=== PATIENT | female | born 1950 | race Caucasian/White ===

== ENCOUNTER 2019-08-12 09:09 | Outpatient (CLI) | payer MEDICARE ==
--- NOTE | 2019-08-12 10:39 | BD ---
DEXA BONE DENSITY STUDY: HISTORY: Postmenopausal. LUMBAR SPINE BMD (g/cm2) T-SCORE L1 1.040 +0.5 L2 1.188 +1.5 L3 1.157 +0.7 L4 1.144 +0.8 TOTAL 1.138 +0.8 LEFT FEMORAL NECK 1.098 +2.1 TOTAL 1.248 +2.5 RIGHT FEMORAL NECK 1.024 +1.6 TOTAL 1.227 +2.3 IMPRESSION: Normal bone mineral density of the lumbar spine and both femoral necks. Z-score values are moderately elevated in this patient. Sometimes this can be an indication of some underlying bone disease such a s renal disease. Clinical correlation is recommended. POS: [facility]
== END 2019-08-12 09:10 | disposition home or self-care (01) ==
LOC: BICMAMMO 09:09
PROVIDERS: ATTEND Internal Medicine Rheumatology
DX: M81.0 Age-related osteoporosis without current pathological fracture (principal)
CPT/HCPCS: 77080

== ENCOUNTER 2019-08-14 12:43 | Outpatient (CLI) | payer MEDICARE ==
--- NOTE | 2019-08-14 13:10 | RAD ---
EXAM: Chest 2 views: HISTORY: Unspecified IRIDOCYCLITIS COMPARISON: None. FINDINGS: There is a normal-sized cardiomediastinal silhouette. There is no evidence of consolidation, mass, or pleural effusion. The bones are unremarkable. IMPRESSION: No evidence of acute cardiopulmonary disease
== END 2019-08-14 12:44 | disposition home or self-care (01) ==
LOC: BICRAD 12:43
PROVIDERS: ATTEND Internal Medicine Rheumatology
DX: H20.9 Unspecified iridocyclitis (principal)
CPT/HCPCS: 71046

== ENCOUNTER 2021-10-09 07:56 | Outpatient (CLI) | payer MEDICARE | END 2021-10-09 07:57 | disposition home or self-care (01) | LOC: BICMAMMO 07:56 | PROVIDERS: ATTEND Internal Medicine Rheumatology | DX: M81.0 Age-related osteoporosis without current pathological fracture (principal) | CPT/HCPCS: 77080 ==

== ENCOUNTER 2022-11-29 14:28 | Outpatient (CLI) | payer MEDICARE ==
[2022-11-29 15:33] LABS: Anion Gap 15 mmol/L (10-20); BUN (Urea Nitrogen) 27 mg/dL (9.8-20.1); Calc. Creatinine Clearance 0 mL/min (70-130); Calcium 9.2 mg/dL (7.8-10.44); Carbon Dioxide 27 mmol/L (23-31); Chloride 105 mmol/L (98-107); Estimated GFR 59; Glucose 164 mg/dL (80-115); Potassium 3.1 mmol/L (3.5-5.1); Sodium 144 mmol/L (136-145)
[2022-11-29 15:51] LABS: #Basophils 0.1 10x3/uL (0.0-0.2); #Eosinphils 0.1 10x3/uL (0.0-0.5); #Monocytes 0.7 10x3/uL (0.0-1.1); #Neutrophils 5.5 10x3/uL (1.5-8.4); %Basophils 0.4 % (0.0-2.0); %Eosinophils 0.9 % (0.0-6.0); %Lymphocytes 43.4 % (18.0-47.0); %Neutrophils 48.9 % (40.0-75.0); Mean Corpuscular HGB CONC 32.7 g/dL (32.0-36.0); Mean Corpuscular Volume 91.7 fl (81.6-98.3); Mean Platelet Volume 8.7 fl (7.4-10.4); Platelet Count 293 10x3/uL (150-450); RBC Distribution Width 14.1 % (11.5-14.5); Red Blood Cell (RBC) Count 4.33 10x6/uL (3.90-5.03); White Blood Cell (WBC) Count 11.3 10x3/uL (3.5-10.5)
== END 2022-11-29 14:29 | disposition home or self-care (01) ==
LOC: LABBT 14:28
PROVIDERS: ATTEND Orthopaedic Surgery
DX: Z01.812 Encounter for preprocedural laboratory examination (principal); M16.0 Bilateral primary osteoarthritis of hip
CPT/HCPCS: 80048; 85025; 85610; 87081; 93005; 93010

== ENCOUNTER 2022-12-04 08:20 | Observation (INO) | payer MEDICARE ==
[2022-11-30 13:36] VITALS: BMI 38.7
[2022-12-04] MEDS ORDERED: Ropivacaine 0.5% HCl/PF (150 MG/30 ML VIAL) ONE (08:58)
[2022-12-04] MEDS ORDERED: Fentanyl 100 MCG/2 ML VIAL ONE ×2 (08:58→12:20)
[2022-12-04] MEDS ORDERED: Midazolam HCl 2 mg/2 ml Vial ONE (08:58)
[2022-12-04] MEDS ORDERED: Tranexamic Acid 1,000 MG/10 ML VIAL ONE (08:59)
[2022-12-04] MEDS ORDERED: Vancomycin (BATCH) 1.5 GRAM/300 ML BAG ONE (08:59)
[2022-12-04] MEDS ORDERED: Sodium Chloride 0.9% 100 ML ONE ×2 (08:59→09:40)
[2022-12-04] MEDS ORDERED: Bupivacaine PF 0.5% 30 ML VIAL ONE (09:20)
[2022-12-04] MEDS ORDERED: fentaNYL PF 100 MCG/2 ML SYRINGE ONE (09:23)
[2022-12-04] MEDS ORDERED: Propofol 500 MG/50 ML VIAL ONE ×2 (09:24→10:43)
[2022-12-04] MEDS ORDERED: Lidocaine 1% PF 5 ML VIAL ONE ×2 (09:24→09:56)
[2022-12-04] MEDS ORDERED: HYDROcodone/Acetaminophen 10/325 mg Tablet PO PRN (09:33)
[2022-12-04] MEDS ORDERED: Zolpidem Tartrate 5 MG TAB PO PRN (09:33)
[2022-12-04] MEDS ORDERED: Promethazine HCl 25 MG/ML VIAL IM PRN (09:33)
[2022-12-04] MEDS ORDERED: Acetaminophen 325 MG TAB PO PRN (09:33)
[2022-12-04] MEDS ORDERED: Ondansetron PF 4 MG/2 ML Vial IVP PRN (09:33)
[2022-12-04] MEDS ORDERED: diphenhydrAMINE 25 MG CAP PO PRN (09:33)
[2022-12-04] MEDS ORDERED: guaiFENesin ER 600 MG TAB PO PRN (09:35)
[2022-12-04] MEDS ORDERED: CEFAZOLIN 2 GM VIAL ONE (09:40)
[2022-12-04 09:52] LABS: SARS-CoV-2 NAA Rapid Test Not Detected (NotDetected)
[2022-12-04] MEDS ORDERED: PROPOFOL 200 MG/20 ML VIAL ONE (09:56)
[2022-12-04] MEDS ORDERED: PHENYLEPHRINE-NS 100 MCG/ML 10 ML SYRINGE ONE (09:56)
[2022-12-04] MEDS ORDERED: HYDROcodone/Acetaminophen 10/325 mg Tablet ONE (14:53)
[2022-12-04] MEDS: HYDROcodone/Acetaminophen 10/325 mg Tablet PO PRN (18:35)
[2022-12-04] MEDS: CEFAZOLIN 2 GM in Sodium Chloride 0.9% 100 ML IVPB SCH (18:36)
[2022-12-04] MEDS: Sodium Chloride 0.9% 1,000 ML IV SCH (18:40)
[2022-12-04] MEDS ORDERED: DULoxetine 60 MG CAP PO SCH (21:00)
[2022-12-04] MEDS ORDERED: tiZANidine HCl 4 MG TAB PO SCH (21:00)
[2022-12-04] MEDS ORDERED: Ezetimibe 10 MG TAB PO SCH (21:00)
[2022-12-04] MEDS ORDERED: [UNRECOGNIZED DRUG - MIXTURE] PO SCH (21:00)
[2022-12-04] MEDS: Aspirin 81 mg Enteric Coated Tablet PO SCH (21:01)
[2022-12-04] MEDS: Ferrous Gluconate 324 MG TAB PO SCH (21:02)
[2022-12-04] MEDS: Senokot S 8.6-50 MG TAB PO SCH (21:02)
[2022-12-04] MEDS: Oxybutynin 5 MG TAB PO SCH (21:03)
[2022-12-05] MEDS: Sodium Chloride 0.9% 1,000 ML IV SCH ×2 (00:29→04:20)
[2022-12-05] MEDS: CEFAZOLIN 2 GM in Sodium Chloride 0.9% 100 ML IVPB SCH (02:22)
[2022-12-05] MEDS: HYDROcodone/Acetaminophen 10/325 mg Tablet PO PRN ×2 (04:21→08:32)
[2022-12-05 06:11] LABS: Hemoglobin 11.3 g/dL (12.0-16.0); Mean Corpuscular HGB CONC 33.2 g/dL (32.0-36.0); Mean Corpuscular Hemoglobin 31.6 pg (27.0-31.0); Mean Platelet Volume 6.8 fL (7.4-10.4); Platelet Count 258 10x3/uL (130-400); RBC Distribution Width 13.1 % (11.5-14.5); White Blood Cell (WBC) Count 15.9 10x3/uL (4.8-10.8)
[2022-12-05 07:48] VITALS: TEMP 97.9
[2022-12-05] MEDS: Ferrous Gluconate 324 MG TAB PO SCH (08:31)
[2022-12-05] MEDS: Senokot S 8.6-50 MG TAB PO SCH (08:31)
[2022-12-05] MEDS: Aspirin 81 mg Enteric Coated Tablet PO SCH (08:31)
[2022-12-05] MEDS: Oxybutynin 5 MG TAB PO SCH (08:32)
[2022-12-05] MEDS ORDERED: Lisinopril 10 MG TAB PO SCH (09:00)
[2022-12-05] MEDS ORDERED: Cyanocobalamin (Vitamin B-12) 1,000 MCG TAB PO SCH (09:00)
[2022-12-05] MEDS ORDERED: Magnesium Oxide 250 MG TAB PO SCH (09:00)
[2022-12-05] MEDS ORDERED: VITAMIN E 180 MG PO SCH (09:00)
[2022-12-05] MEDS ORDERED: FLU VACC QS2022-23(65YR UP)/PF 240 MCG/0.7 ML SYRINGE IM ONE (09:00)
[2022-12-05] MEDS ORDERED: Multivit, Therapeutic 1 TAB PO SCH (09:00)
[2022-12-05] MEDS ORDERED: Hydrochlorothiazide 25 MG TAB PO SCH (09:00)
[2022-12-05] MEDS ORDERED: Multivitamin W/ Minerals 1 TAB PO SCH (09:00)
[2022-12-05 11:43] VITALS: BP 109/70
== END 2022-12-05 10:53 | disposition home or self-care (01) ==
LOC: SDC 08:20 → SURG A 15:00
PROVIDERS: ADMIT Orthopaedic Surgery; ATTEND Orthopaedic Surgery
PROC: 0SR902A Replacement of Right Hip Joint with Metal on Polyethylene Synthetic Substitute, Uncemented, Open Approach (ICD-10-PCS; principal; 2022-12-04)
DX: M16.0 Bilateral primary osteoarthritis of hip (principal); I10 Essential (primary) hypertension; E78.00 Pure hypercholesterolemia, unspecified; M79.7 Fibromyalgia; Z79.899 Other long term (current) drug therapy; Z88.2 Allergy status to sulfonamides; Z98.1 Arthrodesis status; Z20.822 Contact with and (suspected) exposure to COVID-19
CPT/HCPCS: 27130; 73502; 85027; 97116; 97530 ×3; 97535; C1776; J3370; U0002; 36415; 96374; 96376; G0378; J2250; J2704; J2795; J3010; J3490; S0020

== ENCOUNTER 2023-01-16 12:43 | Outpatient (CLI) | payer MEDICARE | END 2023-01-16 12:44 | disposition home or self-care (01) | LOC: CT 12:43 | PROVIDERS: ATTEND Neurological Surgery | DX: M47.12 Other spondylosis with myelopathy, cervical region (principal); M48.02 Spinal stenosis, cervical region; Z98.1 Arthrodesis status | CPT/HCPCS: 72125 ==

== ENCOUNTER 2023-01-21 09:44 | Outpatient (CLI) | payer MEDICARE ==
[2023-01-21 12:28] LABS: Hemoglobin 12.5 g/dL (12.0-15.5); Mean Corpuscular HGB CONC 32.8 g/dL (32.0-36.0); Mean Corpuscular Volume 91.6 fl (81.6-98.3); Mean Platelet Volume 9.3 fl (7.4-10.4); Platelet Count 342 10x3/uL (150-450); RBC Distribution Width 13.1 % (11.5-14.5); Red Blood Cell (RBC) Count 4.16 10x6/uL (3.90-5.03); White Blood Cell (WBC) Count 8.9 10x3/uL (3.5-10.5)
[2023-01-21 12:38] LABS: INR-International Normal Ratio 1.1; PTT 29.3 sec (22.0-33.0); Prothrombin Time 11.4 sec (9.5-12.1)
[2023-01-21 12:55] LABS: Anion Gap 17 mmol/L (10-20); BUN (Urea Nitrogen) 15 mg/dL (9.8-20.1); Calc. Creatinine Clearance 0 mL/min (70-130); Calcium 9.4 mg/dL (7.8-10.44); Carbon Dioxide 25 mmol/L (23-31); Chloride 102 mmol/L (98-107); Estimated GFR 71; Glucose 132 mg/dL (80-115); Potassium 3.7 mmol/L (3.5-5.1); Sodium 140 mmol/L (136-145)
== END 2023-01-21 09:45 | disposition home or self-care (01) ==
LOC: LABBT 09:44
PROVIDERS: ATTEND Neurological Surgery
DX: Z01.812 Encounter for preprocedural laboratory examination (principal); M48.03 Spinal stenosis, cervicothoracic region
CPT/HCPCS: 80048; 85027; 85610; 85730

== ENCOUNTER 2023-01-21 09:45 | Inpatient (IN) | payer OTHER, MEDICARE ==
[2023-01-22] MEDS ORDERED: Vancomycin 1 GM VIAL ONE (06:10)
[2023-01-22] MEDS ORDERED: Bupivacaine HCl 0.5%/Epinephrine 1:200,000/PF 30 ml Vial ONE (06:10)
[2023-01-22] MEDS ORDERED: Thrombin 5000 UNITS/5 ML VIAL ONE (06:10)
[2023-01-22] MEDS ORDERED: Bacitracin Zinc Ointment 30 gm TUBE ONE (06:10)
[2023-01-22] MEDS ORDERED: Neomycin-Polymyxin 1 ML AMP ONE (06:10)
[2023-01-22] MEDS ORDERED: Albumin 25% 100 ML ONE (06:12)
[2023-01-22] MEDS ORDERED: Fentanyl 250 MCG/5 ML VIAL ONE (06:12)
[2023-01-22] MEDS ORDERED: Dexmedetomidine 200 MCG/2 ML VIAL ONE (06:12)
[2023-01-22] MEDS ORDERED: CEFAZOLIN 2 GM VIAL ONE (06:18)
[2023-01-22] MEDS ORDERED: Sodium Chloride 0.9% 100 ML ONE (06:18)
[2023-01-22] MEDS ORDERED: Milk Of Magnesia 30 ML UDCUP PO PRN (06:50)
[2023-01-22] MEDS ORDERED: Prochlorperazine 10 MG/2 ML VIAL IM PRN (06:50)
[2023-01-22] MEDS ORDERED: HYDROcodone/Acetaminophen 7.5/325 mg Tablet PO PRN (06:50)
[2023-01-22] MEDS ORDERED: Midazolam HCl 2 mg/2 ml Vial ONE (06:50)
[2023-01-22] MEDS ORDERED: Mag-Al 1200 mg/1200 mg/30 ML UDCUP PO PRN (06:50)
[2023-01-22] MEDS ORDERED: diphenhydrAMINE 50 MG/ML VIAL IVP PRN (06:50)
[2023-01-22] MEDS ORDERED: Acetaminophen/Codeine 30-300mg Tablet PO PRN (06:50)
[2023-01-22] MEDS ORDERED: MINERAL OIL/WHITE PETROLATUM 3.5 GM TUBE ONE (06:59)
[2023-01-22] MEDS ORDERED: Ondansetron PF 4 MG/2 ML Vial ONE (07:05)
[2023-01-22] MEDS ORDERED: PROPOFOL 200 MG/20 ML VIAL ONE (07:05)
[2023-01-22] MEDS ORDERED: Dexamethasone 20 MG/5 ML VIAL ONE (07:05)
[2023-01-22] MEDS ORDERED: Lidocaine 1% PF 5 ML VIAL ONE (07:05)
[2023-01-22] MEDS ORDERED: Rocuronium Bromide 10 MG/ML (10ML VIAL) ONE (07:05)
[2023-01-22] MEDS ORDERED: NEOSTIGMINE 3 MG/3 ML SYR 3 MG/3 ML SYRINGE ONE (07:05)
[2023-01-22] MEDS ORDERED: Vecuronium 10 MG VIAL ONE (07:05)
[2023-01-22] MEDS ORDERED: Phenylephrine 10 MG/ML VIAL ONE (07:05)
[2023-01-22] MEDS ORDERED: Esmolol 100 MG/10 ML VIAL ONE (07:05)
[2023-01-22] MEDS ORDERED: GLYCOPYRROLATE/PF 0.2 MG/ML VIAL ONE (07:05)
[2023-01-22] MEDS ORDERED: Famotidine/PF 20 mg/2ml Vial ONE (12:28)
[2023-01-22] MEDS ORDERED: HYDROmorphone 2 MG/ML VIAL ONE (12:41)
[2023-01-22] MEDS ORDERED: Promethazine HCl 25 MG/ML VIAL IM PRN (12:54)
[2023-01-22] MEDS ORDERED: Morphine Sulfate 2 MG/ML SYRINGE SLOW IVP PRN (12:54)
[2023-01-22] MEDS ORDERED: HYDROmorphone 2 MG/ML VIAL SLOW IVP PRN (12:54)
[2023-01-22] MEDS ORDERED: Ondansetron HCl/PF 4 MG/2 ML Vial IVP PRN (12:54)
[2023-01-22] MEDS: Sodium Chloride 0.9% 1,000 ML IV SCH ×3 (15:20→20:20)
[2023-01-22] MEDS: Oxybutynin 5 MG TAB PO SCH ×2 (15:30→19:49)
[2023-01-22 16:58] VITALS: BMI 39.0
[2023-01-22] MEDS: Ondansetron PF 4 MG/2 ML Vial IVP PRN (17:45)
[2023-01-22] MEDS: Morphine 2 MG/ML VIAL SLOW IVP PRN ×2 (17:45→21:58)
[2023-01-22] MEDS: CEFAZOLIN 2 GM in Sodium Chloride 0.9% 100 ML IVPB SCH ×2 (17:46→22:02)
[2023-01-22] MEDS: tiZANidine HCl 4 MG TAB PO PRN (19:48)
[2023-01-22] MEDS: HYDROcodone/Acetaminophen 10/325 mg Tablet PO PRN (19:48)
[2023-01-22] MEDS: DULoxetine 60 MG CAP PO SCH (19:49)
[2023-01-22] MEDS: Ezetimibe 10 MG TAB PO SCH (19:50)
[2023-01-22] MEDS ORDERED: Fentanyl 100 MCG/2 ML VIAL SLOW IVP PRN (22:17)
[2023-01-22] MEDS ORDERED: Dexamethasone 4 mg/ml Vial SLOW IVP SCH (22:30)
[2023-01-22] MEDS ORDERED: Diazepam 5 MG TAB PO SCH (22:30)
[2023-01-22] MEDS: fentaNYL 50 mcg/mL 1 mL Vial SLOW IVP PRN ×2 (22:32→23:59)
[2023-01-23] MEDS: HYDROcodone/Acetaminophen 10/325 mg Tablet PO PRN (00:31)
[2023-01-23] MEDS: HYDROmorphone/PF 10 MG in Sodium Chloride 0.9% 99 ML IVPB PRN ×2 (01:54→16:22)
[2023-01-23] MEDS ORDERED: diphenhydrAMINE 50 MG/ML VIAL IM/IV PRN (02:30)
[2023-01-23] MEDS ORDERED: Ketorolac Tromethamine 30 MG/ML VIAL IVP PRN (02:30)
[2023-01-23] MEDS ORDERED: Naloxone HCl 0.4 mg/ml Vial IV PRN (02:30)
[2023-01-23] MEDS ORDERED: Zolpidem Tartrate 5 MG TAB PO PRN (02:30)
[2023-01-23] MEDS ORDERED: Promethazine HCl 25 MG/ML VIAL IM PRN (02:30)
[2023-01-23] MEDS: Sodium Chloride 0.9% 1,000 ML IV SCH ×2 (07:52→20:28)
[2023-01-23] MEDS: Oxybutynin 5 MG TAB PO SCH ×2 (07:54→20:28)
[2023-01-23] MEDS ORDERED: Acetaminophen 500 MG TAB PO SCH (10:00)
[2023-01-23] MEDS ORDERED: Ketorolac Tromethamine 30 MG/ML VIAL IVP SCH (10:00)
[2023-01-23] MEDS: Acetaminophen 500 MG TAB PO SCH ×2 (12:22→17:34)
[2023-01-23] MEDS: Ketorolac Tromethamine 30 MG/ML VIAL IVP SCH ×2 (12:22→17:33)
[2023-01-23] MEDS: diphenhydrAMINE 25 MG CAP PO PRN ×2 (16:30→20:27)
[2023-01-23] MEDS: DULoxetine 60 MG CAP PO SCH (20:27)
[2023-01-23] MEDS: Ezetimibe 10 MG TAB PO SCH (20:27)
[2023-01-24] MEDS: Acetaminophen 500 MG TAB PO SCH ×4 (00:02→19:16)
[2023-01-24] MEDS: Ketorolac Tromethamine 30 MG/ML VIAL IVP SCH ×3 (00:02→13:06)
[2023-01-24] MEDS: diphenhydrAMINE 25 MG CAP PO PRN ×2 (06:06→20:06)
[2023-01-24 07:48] LABS: Hemoglobin 10.8 g/dL (12.0-16.0); Mean Corpuscular HGB CONC 32.2 g/dL (32.0-36.0); Mean Corpuscular Hemoglobin 31.3 pg (27.0-31.0); Mean Corpuscular Volume 97.3 fl (78.0-98.0); Mean Platelet Volume 6.7 fL (7.4-10.4); Platelet Count 379 10x3/uL (130-400); RBC Distribution Width 12.5 % (11.5-14.5); Red Blood Cell (RBC) Count 3.43 mill/uL (4.20-5.40)
[2023-01-24 08:07] LABS: Anion Gap 17 mmol/L (10-20); BUN (Urea Nitrogen) 33 mg/dL (9.8-20.1); Calc. Creatinine Clearance 31 mL/min (70-130); Calcium 8.3 mg/dL (7.8-10.44); Carbon Dioxide 21 mmol/L (23-31); Chloride 101 mmol/L (98-107); Estimated GFR 21; Glucose 166 mg/dL (80-115); Sodium 135 mmol/L (136-145)
[2023-01-24] MEDS: Oxybutynin 5 MG TAB PO SCH (09:58)
[2023-01-24] MEDS: Ondansetron PF 4 MG/2 ML Vial IVP PRN ×2 (10:32→20:01)
[2023-01-24 10:53] LABS: Band 28 % (5-11); Lymphocytes 7 % (21-51); MDiff Complete? YES; Metamyelocyte 1 % (0-0); Monocytes 6 % (0-10); Neutrophil 58 % (42-75); Platelet Morphology Comment Appears Adequate; Polychromasia SLIGHT = 2-3 cells (100X) (0-2/hpf)
[2023-01-24] MEDS: Sodium Chloride 0.9% 1,000 ML IV SCH ×2 (12:43→19:57)
[2023-01-24 13:03] LABS: ALT (SGPT) 27 U/L (8-55); AST (SGOT) 68 U/L (5-34); Albumin 3.1 g/dL (3.4-4.8); Alkaline Phosphatase 85 U/L (40-110); Bilirubin, Direct 0.3 mg/dL (0.1-0.3); Bilirubin, Total 0.5 mg/dL (0.2-1.2); Protein, Total 5.6 g/dL (5.8-8.1)
[2023-01-24 14:11] LABS: Bacteria/HPF 3+ HPF (None Seen); Bilirubin Negative (Negative); Blood, Urine 3+ (Negative); CAUTI Indications for Culture Spinal Cord Injury; Clarity Turbid (Clear); Glucose, Urine (Dipstick) Normal (Negative); Ketone, Urine Trace mg/dL (Negative); Leukocyte 250 Leu/uL (Negative); Nitrite Negative (Negative); Protein, Urine (Dipstick) 30 mg/dL (Neg-Trace); RBC/HPF 0-3 HPF (0-3); Specific Gravity, Urine 1.023 (1.002-1.036); Squamous Epithelial 0-3 HPF (0-3); Urobilinogen Normal mg/dL (Less than 2)
[2023-01-24 14:12] LABS: Urine Culture Reflex No No
[2023-01-24 14:44] LABS: Creatinine, Urine 139.56 mg/dL (47-110); Protein, Urine Random Quant 44 mg/dL (1-14); Sodium, Urine Less than 20 mmol/L (Not Available); Urea Nitrogen, Random Urine 611 mg/dl
[2023-01-24] MEDS ORDERED: Sodium Chloride 0.9% 500 ML IV SCH (15:15)
[2023-01-24] MEDS ORDERED: Vancomycin 1 GM in Premix Bag 1 BAG IVPB SCH (15:30)
[2023-01-24 15:38] LABS: Legionella Urinary Ag Negative (Negative); Strep pneumo Urine Ag NEGATIVE (NEGATIVE)
[2023-01-24] MEDS ORDERED: VANCOMYCIN 1.75 GM/500 ML BAG 1.75 GM in Premix Bag 1 BAG IVPB SCH (16:00)
[2023-01-24] MEDS ORDERED: Meropenem 1 GM in Sodium Chloride 0.9% 100 ML IVPB SCH ×2 (16:00→18:00)
[2023-01-24] MEDS ORDERED: Vancomycin Dose by Levels Sliding Scale (Wt 71-99) FS SCH (16:00)
[2023-01-24 17:45] LABS: INR-International Normal Ratio 1.5; Prothrombin Time 18.5 sec (12.0-14.7)
[2023-01-24 17:59] LABS: Troponin I Less than 0.010 ng/mL (< 0.028)
[2023-01-24] MEDS: Ezetimibe 10 MG TAB PO SCH (20:06)
[2023-01-24] MEDS: DULoxetine 60 MG CAP PO SCH (20:06)
[2023-01-25] MEDS: Acetaminophen 500 MG TAB PO SCH ×4 (00:29→18:23)
[2023-01-25] MEDS: tiZANidine HCl 4 MG TAB PO PRN ×2 (00:32→09:23)
[2023-01-25] MEDS ORDERED: DRY MOUTH SPRAY PO PRN (01:17)
[2023-01-25] MEDS ORDERED: Meropenem 500 MG in Sodium Chloride 0.9% 100 ML IVPB SCH (02:00)
[2023-01-25] MEDS: DRY MOUTH SPRAY PO SCH ×3 (05:24→21:21)
[2023-01-25 05:50] LABS: Hemoglobin 10.8 g/dL (12.0-16.0); Mean Corpuscular HGB CONC 34.2 g/dL (32.0-36.0); Mean Corpuscular Hemoglobin 32.5 pg (27.0-31.0); Mean Corpuscular Volume 95.3 fl (78.0-98.0); Mean Platelet Volume 6.9 fL (7.4-10.4); Platelet Count 324 10x3/uL (130-400); RBC Distribution Width 12.2 % (11.5-14.5); Red Blood Cell (RBC) Count 3.33 mill/uL (4.20-5.40); White Blood Cell (WBC) Count 8.1 10x3/uL (4.8-10.8)
[2023-01-25 06:06] LABS: Troponin I Less than 0.010 ng/mL (< 0.028)
[2023-01-25 06:16] LABS: ALT (SGPT) 33 U/L (8-55); AST (SGOT) 71 U/L (5-34); Albumin 2.8 g/dL (3.4-4.8); Alkaline Phosphatase 74 U/L (40-110); Anion Gap 12 mmol/L (10-20); BUN (Urea Nitrogen) 36 mg/dL (9.8-20.1); Bilirubin, Direct 0.2 mg/dL (0.1-0.3); Bilirubin, Total 0.3 mg/dL (0.2-1.2); Calc. Creatinine Clearance 59 mL/min (70-130); Calcium 8.4 mg/dL (7.8-10.44); Carbon Dioxide 25 mmol/L (23-31); Chloride 103 mmol/L (98-107); Estimated GFR 45; Globulin 2.4 g/dL (2.4-3.5); Glucose 152 mg/dL (80-115); Lipase Less than 4 U/L (8-78); Magnesium 2.4 mg/dL (1.6-2.6); Potassium 3.4 mmol/L (3.5-5.1); Protein, Total 5.2 g/dL (5.8-8.1); Sodium 137 mmol/L (136-145)
[2023-01-25 06:19] LABS: Hemoglobin A1c 5.4 % (4.0-6.0)
[2023-01-25 06:42] LABS: Band 55 % (5-11); Eosinophils 1 % (0-10); Lymphocytes 10 % (21-51); MDiff Complete? YES; Metamyelocyte 5 % (0-0); Monocytes 14 % (0-10); Neutrophil 15 % (42-75)
[2023-01-25] MEDS ORDERED: Potassium Chloride 20 MEQ TAB PO SCH (07:30)
[2023-01-25] MEDS: oxyCODONE 5 MG TAB PO PRN ×2 (07:47→17:08)
[2023-01-25] MEDS ORDERED: Polyethylene Glycol 3350 17 GM Packet PO PRN (08:56)
[2023-01-25] MEDS ORDERED: Vancomycin 1 GM in Premix Bag 1 BAG IVPB SCH (09:00)
[2023-01-25] MEDS: Senokot S 8.6-50 MG TAB PO SCH ×2 (09:22→21:20)
[2023-01-25] MEDS: Sodium Chloride 0.9% 1,000 ML IV SCH (13:01)
[2023-01-25 16:50] LABS: Vancomycin, Random 1.4 ug/mL (See Comment)
[2023-01-25] MEDS: Meropenem 1 GM in Sodium Chloride 0.9% 100 ML IVPB SCH (17:01)
[2023-01-25] MEDS ORDERED: Vancomycin 1.5 GRAM/300 ML BAG 1.5 GM in Premix Bag 1 BAG IVPB SCH (18:00)
[2023-01-25] MEDS ORDERED: traMADol HCl 50 MG TAB PO PRN (19:20)
[2023-01-25] MEDS: DULoxetine 60 MG CAP PO SCH (21:20)
[2023-01-25] MEDS: Ezetimibe 10 MG TAB PO SCH (21:20)
[2023-01-25 22:15] LABS: #Eosinphils 0.5 thou/uL (0.0-0.7); #Lymphocytes 1.3 thou/uL (1.20-3.40); #Monocytes 0.7 thou/uL (0.11-0.59); #Neutrophils 4.3 thou/uL (1.40-6.50); %Basophils 0.4 % (0.0-1.0); %Eosinophils 6.9 % (0.0-10.0); %Lymphocytes 19.5 % (21.0-51.0); %Neutrophils 63.2 % (42.0-75.0); Hemoglobin 9.8 g/dL (12.0-16.0); Mean Corpuscular HGB CONC 33.9 g/dL (32.0-36.0); Mean Corpuscular Hemoglobin 31.8 pg (27.0-31.0); Mean Corpuscular Volume 93.8 fl (78.0-98.0); Mean Platelet Volume 6.4 fL (7.4-10.4); Platelet Count 313 10x3/uL (130-400); RBC Distribution Width 12.3 % (11.5-14.5); Red Blood Cell (RBC) Count 3.07 mill/uL (4.20-5.40); White Blood Cell (WBC) Count 6.9 10x3/uL (4.8-10.8)
[2023-01-25 22:31] LABS: Actual Bicarbonate (HCO3v) 24.3 mEq/L (22-28); Base Excess 1.5 mEq/L (-2.0 to +3.0); Calcium, Ionized (venous) 1.02 mmol/L (1.16-1.32); Chloride (VBG) 106 mmol/L (98-106); Hematocrit-VBG 31 % (36.0-47.0); Hemoglobin (Hb) 10.4 g/dL (11.7-16.1); Potassium (VBG) 3.67 mmol/L (3.70-5.30); Sodium 135.1 mmol/L (133-146); pH (venous) 7.499 (7.32-7.43)
[2023-01-25 22:36] LABS: ALT (SGPT) 30 U/L (8-55); AST (SGOT) 43 U/L (5-34); Albumin 2.6 g/dL (3.4-4.8); Alkaline Phosphatase 69 U/L (40-110); Anion Gap 10 mmol/L (10-20); BUN (Urea Nitrogen) 28 mg/dL (9.8-20.1); Bilirubin, Total 0.3 mg/dL (0.2-1.2); Calc. Creatinine Clearance 89 mL/min (70-130); Calcium 8.1 mg/dL (7.8-10.44); Carbon Dioxide 24 mmol/L (23-31); Chloride 107 mmol/L (98-107); Estimated GFR 75; Globulin 2.2 g/dL (2.4-3.5); Glucose 112 mg/dL (80-115); Potassium 3.7 mmol/L (3.5-5.1); Protein, Total 4.8 g/dL (5.8-8.1); Sodium 137 mmol/L (136-145)
[2023-01-26] MEDS: Acetaminophen 500 MG TAB PO SCH ×4 (00:45→17:41)
[2023-01-26] MEDS: Meropenem 1 GM in Sodium Chloride 0.9% 100 ML IVPB SCH ×3 (02:57→21:50)
[2023-01-26 05:00] LABS: Hemoglobin 9.7 g/dL (12.0-16.0); Mean Corpuscular HGB CONC 33.9 g/dL (32.0-36.0); Mean Corpuscular Hemoglobin 32.2 pg (27.0-31.0); Mean Corpuscular Volume 94.9 fl (78.0-98.0); Mean Platelet Volume 6.9 fL (7.4-10.4); Platelet Count 311 10x3/uL (130-400); RBC Distribution Width 12.2 % (11.5-14.5); Red Blood Cell (RBC) Count 3.01 mill/uL (4.20-5.40); White Blood Cell (WBC) Count 6.3 10x3/uL (4.8-10.8)
[2023-01-26 05:15] LABS: ALT (SGPT) 29 U/L (8-55); AST (SGOT) 38 U/L (5-34); Albumin 2.6 g/dL (3.4-4.8); Alkaline Phosphatase 73 U/L (40-110); Anion Gap 10 mmol/L (10-20); BUN (Urea Nitrogen) 26 mg/dL (9.8-20.1); Bilirubin, Total 0.3 mg/dL (0.2-1.2); Calc. Creatinine Clearance 96 mL/min (70-130); Calcium 8.2 mg/dL (7.8-10.44); Carbon Dioxide 25 mmol/L (23-31); Chloride 106 mmol/L (98-107); Estimated GFR 82; Globulin 2.3 g/dL (2.4-3.5); Glucose 113 mg/dL (80-115); Magnesium 2.3 mg/dL (1.6-2.6); Potassium 3.6 mmol/L (3.5-5.1); Protein, Total 4.9 g/dL (5.8-8.1); Sodium 137 mmol/L (136-145)
[2023-01-26 05:44] LABS: Band 8 % (5-11); Eosinophils 6 % (0-10); Lymphocytes 18 % (21-51); MDiff Complete? YES; Monocytes 23 % (0-10); Myelocyte 1 % (0-0); Neutrophil 44 % (42-75); Platelet Morphology Comment Appears Adequate; Polychromasia SLIGHT = 2-3 cells (100X) (0-2/hpf)
[2023-01-26] MEDS: DRY MOUTH SPRAY PO SCH ×3 (05:44→20:11)
[2023-01-26] MEDS: Senokot S 8.6-50 MG TAB PO SCH ×2 (07:49→20:06)
[2023-01-26] MEDS: Sodium Chloride 0.9% 1,000 ML IV SCH (08:20)
[2023-01-26] MEDS: Ezetimibe 10 MG TAB PO SCH (20:04)
[2023-01-26] MEDS: tiZANidine HCl 4 MG TAB PO PRN (20:04)
[2023-01-26] MEDS: DULoxetine 60 MG CAP PO SCH (20:04)
[2023-01-26] MEDS: Ondansetron PF 4 MG/2 ML Vial IVP PRN (21:53)
[2023-01-27 05:08] LABS: Hemoglobin 10.5 g/dL (12.0-16.0); Mean Corpuscular HGB CONC 33.7 g/dL (32.0-36.0); Mean Corpuscular Hemoglobin 31.5 pg (27.0-31.0); Mean Corpuscular Volume 93.6 fl (78.0-98.0); Mean Platelet Volume 6.6 fL (7.4-10.4); Platelet Count 319 10x3/uL (130-400); RBC Distribution Width 12.3 % (11.5-14.5); Red Blood Cell (RBC) Count 3.34 mill/uL (4.20-5.40); White Blood Cell (WBC) Count 7.6 10x3/uL (4.8-10.8)
[2023-01-27] MEDS: Acetaminophen 500 MG TAB PO SCH ×5 (05:08→23:35)
[2023-01-27 05:20] LABS: ALT (SGPT) 26 U/L (8-55); AST (SGOT) 27 U/L (5-34); Albumin 2.7 g/dL (3.4-4.8); Alkaline Phosphatase 72 U/L (40-110); Anion Gap 9 mmol/L (10-20); BUN (Urea Nitrogen) 14 mg/dL (9.8-20.1); Bilirubin, Total 0.2 mg/dL (0.2-1.2); Calc. Creatinine Clearance 113 mL/min (70-130); Calcium 8.3 mg/dL (7.8-10.44); Carbon Dioxide 28 mmol/L (23-31); Cardiac Risk 5.7 (Less than 4.5); Chloride 105 mmol/L (98-107); Cholesterol 103 mg/dl (< 200 Desired); Estimated GFR 94; Globulin 2.4 g/dL (2.4-3.5); Glucose 104 mg/dL (80-115); HDL Cholesterol 18 mg/dL (>60 Neg Risk); LDL Cholesterol, Calculated 47 mg/dL; Magnesium 1.8 mg/dL (1.6-2.6); Protein, Total 5.1 g/dL (5.8-8.1); Sodium 139 mmol/L (136-145); Triglycerides 192 mg/dL (Less than 150)
[2023-01-27] MEDS: Meropenem 1 GM in Sodium Chloride 0.9% 100 ML IVPB SCH ×2 (05:25→16:03)
[2023-01-27 05:49] LABS: Band 7 % (5-11); Eosinophils 5 % (0-10); Lymphocytes 20 % (21-51); MDiff Complete? YES; Monocytes 7 % (0-10); Myelocyte 4 % (0-0); Neutrophil 57 % (42-75)
[2023-01-27] MEDS: DRY MOUTH SPRAY PO SCH ×3 (06:53→21:54)
[2023-01-27] MEDS ORDERED: Magnesium 2 GM/50 ML(in water) 2 GM in Premix Bag 1 BAG IVPB SCH (08:30)
[2023-01-27] MEDS ORDERED: Potassium Chloride 20 MEQ TAB PO SCH (08:30)
[2023-01-27] MEDS: Senokot S 8.6-50 MG TAB PO SCH ×2 (08:50→21:54)
[2023-01-27] MEDS: fentaNYL 50 mcg/mL 1 mL Vial SLOW IVP PRN ×2 (08:55→18:39)
[2023-01-27] MEDS: oxyCODONE 5 MG TAB PO PRN (11:20)
[2023-01-27] MEDS: Ondansetron PF 4 MG/2 ML Vial IVP PRN ×2 (11:20→18:49)
[2023-01-27] MEDS: tiZANidine HCl 4 MG TAB PO PRN (18:19)
[2023-01-27] MEDS: Ezetimibe 10 MG TAB PO SCH (21:53)
[2023-01-27] MEDS: metroNIDAZOLE 500 MG TAB PO SCH (21:53)
[2023-01-27] MEDS: DULoxetine 60 MG CAP PO SCH (21:53)
[2023-01-27] MEDS: Cefepime 2 GM in Sodium Chloride 0.9% 100 ML IVPB SCH (22:01)
[2023-01-28] MEDS: Acetaminophen 500 MG TAB PO SCH ×3 (00:49→13:20)
[2023-01-28] MEDS: oxyCODONE 5 MG TAB PO PRN ×3 (00:50→13:41)
[2023-01-28] MEDS: Cefepime 2 GM in Sodium Chloride 0.9% 100 ML IVPB SCH (05:14)
[2023-01-28] MEDS: tiZANidine HCl 4 MG TAB PO PRN (05:15)
[2023-01-28] MEDS: DRY MOUTH SPRAY PO SCH (05:18)
[2023-01-28 07:28] LABS: Hemoglobin 10.2 g/dL (12.0-16.0); Mean Corpuscular HGB CONC 32.6 g/dL (32.0-36.0); Mean Corpuscular Hemoglobin 30.2 pg (27.0-31.0); Mean Corpuscular Volume 92.9 fl (78.0-98.0); Mean Platelet Volume 6.6 fL (7.4-10.4); Platelet Count 316 10x3/uL (130-400); RBC Distribution Width 12.3 % (11.5-14.5); Red Blood Cell (RBC) Count 3.39 mill/uL (4.20-5.40); White Blood Cell (WBC) Count 7.9 10x3/uL (4.8-10.8)
[2023-01-28 07:50] LABS: ALT (SGPT) 23 U/L (8-55); AST (SGOT) 26 U/L (5-34); Albumin 2.6 g/dL (3.4-4.8); Alkaline Phosphatase 71 U/L (40-110); Anion Gap 11 mmol/L (10-20); BUN (Urea Nitrogen) 10 mg/dL (9.8-20.1); Bilirubin, Total 0.3 mg/dL (0.2-1.2); Calc. Creatinine Clearance 119 mL/min (70-130); Carbon Dioxide 27 mmol/L (23-31); Chloride 103 mmol/L (98-107); Estimated GFR 95; Globulin 2.2 g/dL (2.4-3.5); Glucose 106 mg/dL (80-115); Magnesium 1.8 mg/dL (1.6-2.6); Potassium 2.8 mmol/L (3.5-5.1); Protein, Total 4.8 g/dL (5.8-8.1); Sodium 138 mmol/L (136-145)
[2023-01-28] MEDS ORDERED: Electrolyte Replacement Protocol 1 EACH FS SCH (08:43)
[2023-01-28] MEDS ORDERED: Potassium Chloride 20 MEQ TAB PO SCH ×2 (08:45→13:00)
[2023-01-28] MEDS ORDERED: Magnesium 2 GM/50 ML(in water) 2 GM in Premix Bag 1 BAG IVPB SCH (09:00)
[2023-01-28] MEDS: Senokot S 8.6-50 MG TAB PO SCH (09:01)
[2023-01-28] MEDS: metroNIDAZOLE 500 MG TAB PO SCH (09:01)
[2023-01-28 09:20] LABS: Band 1 % (5-11); Eosinophils 1 % (0-10); Lymphocytes 30 % (21-51); MDiff Complete? YES; Monocytes 15 % (0-10); Neutrophil 52 % (42-75); Platelet Morphology Comment Appears Adequate; RBC Morphology Normal
[2023-01-28 11:33] VITALS: BP 159/99; TEMP 98.5
== END 2023-01-28 14:10 | DRG 471 ==
LOC: SURG A 01-22 05:45 → T4-A 01-22 15:21 → 2NO 01-24 19:33 → SURG B 01-27 14:18
PROVIDERS: ADMIT Neurological Surgery; ATTEND Neurological Surgery
PROC: 0RG2071 Fusion of 2 or more Cervical Vertebral Joints with Autologous Tissue Substitute, Posterior Approach, Posterior Column, Open Approach (ICD-10-PCS; principal; 2023-01-23)
PROC: 0RG4071 Fusion of Cervicothoracic Vertebral Joint with Autologous Tissue Substitute, Posterior Approach, Posterior Column, Open Approach (ICD-10-PCS; 2023-01-23)
DX: M47.12 Other spondylosis with myelopathy, cervical region (principal); J96.01 Acute respiratory failure with hypoxia; K52.1 Toxic gastroenteritis and colitis; N17.9 Acute kidney failure, unspecified; N39.0 Urinary tract infection, site not specified; M54.12 Radiculopathy, cervical region; T40.605A Adverse effect of unspecified narcotics, initial encounter; Y92.230 Patient room in hospital as the place of occurrence of the external cause; K31.84 Gastroparesis; K59.03 Drug induced constipation; R33.0 Drug induced retention of urine; I12.9 Hypertensive chronic kidney disease with stage 1 through stage 4 chronic kidney disease, or unspecified chronic kidney disease; N18.30 Chronic kidney disease, stage 3 unspecified; D64.9 Anemia, unspecified; E87.6 Hypokalemia; G56.03 Carpal tunnel syndrome, bilateral upper limbs; G56.23 Lesion of ulnar nerve, bilateral upper limbs; Z96.641 Presence of right artificial hip joint; M79.7 Fibromyalgia; Z80.9 Family history of malignant neoplasm, unspecified; Z83.3 Family history of diabetes mellitus; Z82.49 Family history of ischemic heart disease and other diseases of the circulatory system; G62.9 Polyneuropathy, unspecified; Z79.899 Other long term (current) drug therapy; R44.1 Visual hallucinations; M35.00 Sjogren syndrome, unspecified; T36.95XA Adverse effect of unspecified systemic antibiotic, initial encounter; M19.90 Unspecified osteoarthritis, unspecified site; R13.10 Dysphagia, unspecified; N32.89 Other specified disorders of bladder; I95.9 Hypotension, unspecified
CPT/HCPCS: 36415; 70450; 70551; 71045; 74018; 76770; 80048; 80053; 80061; 80076; 80202; 81001; 82570; 82805; 83036; 83690; 83735; 83880; 83930; 83935; 84156; 84300; 84443; 84484; 84540; 85025; 85027; 85610; 85730; 86850; 86900; 86901; 87040; 87077; 87081; 87086; 87186; 87449; 87899; 93005; 93010; 93306; 93880; 93970; C1713; C1768; C1776; J0692; J1100; J1170; J1885; J2185; J2250; J2272; J2370; J2405; J2704; J3010; J3370; J3475; J3490; J7030; J7050; P9047; S0028

== ENCOUNTER 2024-02-11 09:41 | Outpatient (CLI) | payer MEDICARE ==
[2024-02-11 10:56] LABS: #Basophils 0.05 10x3/uL (0.0-0.2); #Eosinphils 0.16 10x3/uL (0.0-0.5); #Monocytes 0.69 10x3/uL (0.0-1.1); #Neutrophils 4.56 10x3/uL (1.5-8.4); %Basophils 0.6 % (0.0-2.0); %Eosinophils 1.9 % (0.0-6.0); %Lymphocytes 34.3 % (18.0-47.0); %Monocytes 8.3 % (0.0-10.0); %Neutrophils 54.5 % (40.0-75.0); Hematocrit 42.1 % (34.9-44.5); Hemoglobin 14.9 g/dL (12.0-15.5); Mean Corpuscular HGB CONC 35.4 g/dL (32.0-36.0); Mean Corpuscular Hemoglobin 32.5 pg (27.0-33.0); Mean Corpuscular Volume 91.7 fl (81.6-98.3); Mean Platelet Volume 9.2 fl (7.4-10.4); Platelet Count 232 10x3/uL (150-450); RBC Distribution Width 12.9 % (11.5-14.5); Red Blood Cell (RBC) Count 4.59 10x6/uL (3.90-5.03); White Blood Cell (WBC) Count 8.4 10x3/uL (3.5-10.5)
[2024-02-11 11:35] LABS: Anion Gap 12 mmol/L (10-20); BUN (Urea Nitrogen) 24 mg/dL (9.8-20.1); Calc. Creatinine Clearance 0 mL/min (70-130); Calcium 9.4 mg/dL (7.8-10.44); Carbon Dioxide 26 mmol/L (23-31); Chloride 107 mmol/L (98-107); Estimated GFR 64; Glucose 99 mg/dL (83-110); Potassium 3.7 mmol/L (3.5-5.1); Sodium 141 mmol/L (136-145)
[2024-02-11 11:45] LABS: INR-International Normal Ratio 1.1; Prothrombin Time 11.5 sec (9.5-12.1)
== END 2024-02-11 09:42 | disposition home or self-care (01) ==
LOC: LABBT 09:41
PROVIDERS: ATTEND Orthopaedic Surgery
DX: Z01.818 Encounter for other preprocedural examination (principal); M16.12 Unilateral primary osteoarthritis, left hip
CPT/HCPCS: 80048; 85025; 85610; 87081; 93005; 93010

== ENCOUNTER 2024-10-13 09:48 | Outpatient (CLI) | payer MEDICARE | END 2024-10-13 09:49 | disposition home or self-care (01) | LOC: SCSRAD 09:48 | PROVIDERS: ATTEND Family Medicine | DX: R06.00 Dyspnea, unspecified (principal); R07.9 Chest pain, unspecified | CPT/HCPCS: 36415; 71046; 80053; 80061; 81001; 83880; 84443; 85025 ==